=== PATIENT | male | born 1965 | race Caucasian/White ===

== ENCOUNTER 2016-08-03 05:18 | Day surgery (SDC) | payer OTHER ==
[~2016-08-03] VITALS: Ht 177.8 cm; Wt 83.2 kg
[2016-08-03 06:45] VITALS: Ht 177.8 cm; Wt 83.2 kg
[2016-08-03 07:03] VITALS: BP 113/59; PULSE 58; RESP 16
[2016-08-03] MEDS ORDERED: FENTAnyl 50 MCG/ML VIAL ONE (07:48)
[2016-08-03] MEDS ORDERED: MIDAZOLAM 1 MG/ML 2 ML INJ ONE (07:48)
[2016-08-03 08:07] VITALS: BP 107/56; RESP 20
--- NOTE | 2016-08-03 09:03 | GILP ---
DATE OF PROCEDURE: NAME OF PROCEDURE: Esophagogastroduodenoscopy and biopsy. SURGEON: Kaleb Car MD PREOPERATIVE DIAGNOSES: 1. Abdominal pain. 2. Chronic heartburn. POSTOPERATIVE DIAGNOSES: 1. Hiatal hernia. 2. Reflux esophagitis with erosions. 3. Gastritis with erosions. 4. Gastric mucosal biopsies were taken for Helicobacter pylori test. INDICATION FOR THE PROCEDURE: Mr. Anival Pinto is a 50-year-old male patient who had upper abdominal pain and chronic heartburn, not responding to therapy. The patient was scheduled for endoscopic ex amination for further evaluation. The procedure and possible complications were well explained to the patient. The patient understood and consented to the procedure. DESCRIPTION OF PROCEDURE: Under the influence of fentanyl and Versed, the gastroscope was carefully introduced into the esophagus and under direct vision, it was advanced to the stomach and through t he pylorus into the duodenal bulb and descending duodenum. FINDINGS: ESOPHAGUS: The patient had hiatal hernia and reflux esophagitis with erosions. STOMACH: He had gastritis with erosions. Gastric mucosal biopsies were taken for H pylori test. DUODENUM: Normal. He tolerated the procedure very well and there was no complication from the procedure. At the end o f the procedure, he was awake with stable vital signs and he was discharged home to the care of his family. IMPRESSION: 1. Hiatal hernia. 2. Reflux esophagitis with erosions. 3. Gastritis with erosions. 4. Gastric mucosal biopsies were taken for Helicobacter pylori test. PLAN: 1. Omeprazole 40 mg p.o. every morning. 2. Zantac 300 mg p.o. at bedtime. 3. Await H pylori test report. Dictated By: KALEB CAR MD GD/NTS Conf#: [id number] DID#: [id number] CC: JHONATHAN BURNETTE MD;*EndCC*
== END 2016-08-03 12:44 | disposition home or self-care (01) ==
LOC: GIL 05:18
PROVIDERS: ATTEND Internal Medicine Gastroenterology
DX: K44.9 Diaphragmatic hernia without obstruction or gangrene (principal); K21.0 Gastro-esophageal reflux disease with esophagitis; K29.60 Other gastritis without bleeding
CPT/HCPCS: 43239; 87081; J2250; J3010; Z7610